=== PATIENT | female | born 1965 | race African-American/Black ===

== ENCOUNTER → 2017-02-02 | Outpatient (CLI) | payer BC ==
[2017-02-02 08:42] LABS: BASOPHILS % (AUTO) 0.4 % (0-2); EOSINOPHILS # (AUTO) 0.1 T/MM3 (0-0.5); EOSINOPHILS % (AUTO) 1.1 % (0-4); HCT - HEMATOCRIT 37.6 % (36-46); HGB - HEMOGLOBIN 12.5 GM/DL (12-16); LYMPHOCYTES # (AUTO) 1.8 T/MM3 (1-4.8); LYMPHOCYTES % (AUTO) 38.8 % (23-45); MEAN CORPUSCULAR HGB 30.6 UUG (26-34); MEAN CORPUSCULAR HGB CONC(MCHC 33.2 GM/DL (31-37); MEAN CORPUSCULAR VOLUME 92.2 UM3 (80-100); MEAN PLATELET VOLUME 8.7 UM3 (9.4-12.4); MONOCYTES # (AUTO) 0.3 T/MM3 (0-0.8); MONOCYTES % (AUTO) 7.2 % (0-9.0); NEUTROPHILS #(AUTO)-ABSOLUTE 2.5 T/MM3 (1.8-7.7); NEUTROPHILS % (AUTO) 52.5 % (33-66); RED BLOOD COUNT 4.08 M/MM3 (4.00-5.20); WBC - WHITE BLOOD COUNT 4.7 T/MM3 (4.5-11.0)
== END ==
LOC: LAB 08:21
PROVIDERS: ATTEND Family Medicine
DX: I10 Essential (primary) hypertension (principal); D64.9 Anemia, unspecified
CPT/HCPCS: 36415; 82728; 85025